=== PATIENT | male | born 1970 | race Caucasian/White ===

== ENCOUNTER 2017-01-27 09:03 | Emergency (ER) | payer OTHER ==
[2017-01-27 09:18] VITALS: BP 123/75
--- NOTE | 2017-01-27 09:44 | UC ---
Throat Pain/Nasal Uriel HPI - HPI Summary HPI Summary: Started with congestion, "sinus drainage," 2 [address] severe [address], body aches , chest congestion. Would really like an antibiotic -- "I just want to sleep. I can't miss work. I can't get my girlfriend sick because she just had surgery. I don't want to come back." - History of Current Complaint Chief Complaint: UCRespiratory Stated Complaint: SORE THROAT Time Seen by Provider: 01/27/17 09:32 Hx Obtained From: Patient Onset/Duration: Gradual Onset, Lasting Days Cough: Productive Related History: Seasonal Allergies, Smoking - Allergies/Home Medications Allergies/Adverse Reactions: Allergies Allergy/AdvReac Type Severity Reaction Status Date / Time No Known Allergies Allergy Verified 01/27/17 09:14 PMH/Surg Hx/FS Hx/Imm Hx Respiratory History: Asthma - Surgical History Surgical History: Yes Surgery Procedure, Year, and Place: HERNIA SURGERY - Family History Known Family History: Positive: None Negative: Hypertension, Diabetes - Social History Occupation: Employed Full-time Alcohol Use: Weekly Substance Use Type: None Smoking Status (MU): Heavy Every Day Tobacco Smoker Type: Cigarettes Amount Used/How Often: "not every day" Review of Systems Constitutional: Fatigue Skin: Negative Eyes: Negative ENT: Sore Throat, Nasal Discharge, Sinus Congestion, Sinus Pain/Tenderness Respiratory: Cough Cardiovascular: Negative Gastrointestinal: Negative Genitourinary: Negative Motor: Negative Neurovascular: Negative Musculoskeletal: Negative Neurological: Negative Psychological: Negative Is Patient Immunocompromised?: No All Other Systems Reviewed And Are Negative: Yes Physical Exam Triage Information Reviewed: Yes Appearance: Well-Nourished, Pain Distress - mild Vital Signs: Initial Vital Signs Temp 98.8 F 01/27/17 09:15 Pulse 95 01/27/17 09:15 Resp 16 01/27/17 09:15 BP 123/75 01/27/17 09:15 Pulse Ox 100 01/27/17 09:15 Vital Signs Reviewed: Yes Eye Exam: Normal Eyes: Positive: Conjunctiva Clear ENT: Positive: Hearing grossly normal, Pharynx normal, Nasal congestion, Nasal drainage, TMs normal. Negative: Pharyngeal erythema, TM bulging, TM dull, TM red, Hoarse voice Dental Exam: Normal Neck exam: Normal Neck: Positive: Supple, Nontender, No Lymphadenopathy Respiratory Exam: Normal Respiratory: Positive: Chest non-tender, Lungs clear, Normal breath sounds, No respiratory distress, No accessory muscle use Cardiovascular Exam: Normal Cardiovascular: Positive: RRR, No Murmur Musculoskeletal Exam: Normal Neurological Exam: Normal Neurological: Positive: Alert Psychological Exam: Normal Skin Exam: Normal Throat Pain/Nasal Course/Dx - Course Course Of Treatment: RST negative. Discussed the high likelihood of viral illness at length with pt, especially given his presentation and duration of symptoms. Discussed symptom relief. Pt continued to ask for antibiotic because he does not want to come back. I explained that an antibiotic while sick with a virus will not even prevent him from developing a secondary infection. - Differential Dx/Diagnosis Provider Diagnoses: URI, likely viral. viral pharyngitis Discharge - Discharge Plan Condition: Stable Disposition: HOME Prescriptions: Lidocaine 2% VISCOUS* 5 - 10 ml SWISH SPIT QID #1 btl Naproxen [Naproxen 500 mg] 500 mg PO Q8H PRN #20 tab PRN Reason: Pain Patient Education Materials: Pharyngitis (ED), Upper Respiratory Infection (ED) Forms: *Work Release Referrals: No Primary Care Phys,NOPCP [Primary Care Provider] - Additional Instructions: While you are quite ill, there is no indication that you have a bacterial infection at this time. In fact, it is because you have so many symptoms in different systems that a virus is almost certain. You need rest and time. If you develop new fever, trouble breathing, or worsening pain over time in the ears or the face, please call or return.
== END 2017-01-27 09:55 | disposition home or self-care (01) ==
LOC: UCEAST 09:03
DX: J06.9 Acute upper respiratory infection, unspecified (principal); J02.8 Acute pharyngitis due to other specified organisms; F17.210 Nicotine dependence, cigarettes, uncomplicated; J45.909 Unspecified asthma, uncomplicated
CPT/HCPCS: 87651; 99212; G0463

== ENCOUNTER 2017-01-27 16:11 | Inpatient (IN) | payer OTHER ==
[2017-01-27] MEDS ORDERED: diPHENhydraMINE IV* 50 MG/ML 1 ml VIAL (BENADRYL) IV ONE (16:22)
[2017-01-27] MEDS ORDERED: Ketorolac INJ* 30 MG/ML 1 ML VIAL IV ONE (16:22)
[2017-01-27] MEDS ORDERED: Clindamycin 300 MG IVPREMIX(* 300 MG/50 ML SDV IVPB ONE (16:25)
[2017-01-27] MEDS: NS 0.9% 1000 ML* 2,000 ML IV ONE (16:34)
[2017-01-27 17:01] LABS: Hematocrit 40 % (42-52); Hemoglobin 13.9 g/dl (14.0-18.0); Mean Corpuscular HGB Conc 35 g/dl (31-36); Mean Corpuscular Hemoglobin 33 pg (27-31); Mean Corpuscular Volume 94 fL (80-94); Mean Platelet Volume 9 um3 (7.4-10.4); Red Blood Count 4.29 10^6/ul (4.0-5.4); Red Cell Distribution Width 13 % (10.5-15)
[2017-01-27 17:12] LABS: Albumin 3.7 g/dL (3.2-5.2); C Reactive Protein 71.83 mg/L (< 5.00); Calcium 8.7 mg/dL (8.6-10.3); EGFR African American 149.4 (>60); EGFR Non-African American 116.2 (>60); Globulin 2.4 g/dL (2-4); Potassium 3.6 mmol/L (3.5-5.0); Total Bilirubin 0.8 mg/dL (0.2-1.0); Total Protein 6.1 g/dL (6.4-8.9)
[2017-01-27] MEDS ORDERED: Iohexol 300* (CONTRAST) 10 ML SDV IV ONE (17:29)
[2017-01-27] MEDS ORDERED: methylPREDNISolone 125 MG* 2 ML VIAL IV ONE (18:19)
[2017-01-27] MEDS ORDERED: Famotidine IV* 10 MG/ML 2 ML (20 mg) IV SLOW PU ONE (18:19)
--- NOTE | 2017-01-27 18:32 | RAD ---
INDICATION: Sore throat and difficulty swallowing. Fever. COMPARISON: No relevant prior exams available on the [facility] PACS for comparison. TECHNIQUE: Multidetector CT images skull base to lung apices with 50 mL Omnipaque 300 IV contrast. Multiplanar reformation. REPORT: Symmetric severe hypodense mucosal thickening of the oropharyngeal and hypopharyngeal mucosal space including thickening of the epiglottis. The inflammatory change extends as far caudally as the false vocal cords. The true vocal cords and subglottic airway are unremarkable. Significant resulting supraglottic airway narrowing. Inflammatory change extends to the bilateral carotid space and danger space anterior to the paravertebral space. No loculated abscess collection or abnormal soft tissue gas. Symmetric parapharyngeal fat. Unremarkable parotid and submandibular glands as well as the thyroid gland. Negative for lymphadenopathy based on short axis criteria. Patent bilateral internal jugular veins. Clear visualized lung apices. Negative for suspicious osseous lesions. Multilevel degenerative spondylosis and facet joint osteoarthritis. Moderate mucosal thickening at the RIGHT maxillary sinus. Mucous retention cyst or polyp at the floor of the LEFT maxillary sinus. Negative for paranasal sinus fluid levels. Clear mastoid air spaces. IMPRESSION: Severe extensive bilateral inflammation of the oropharyngeal and hypopharyngeal mucosal space with extension to involve the bilateral carotid space and danger space. No loculated abscess collection evident. Associated compromise of the supraglottic airway. Results discussed with Dr. Brock 01/27/2017 6:28 PM EST
[2017-01-27] MEDS ORDERED: cefTRIAXone(*) 1 GM in NS 0.9% 50 ML* 50 ML IVPB ONE (19:21)
[2017-01-27] MEDS ORDERED: Propofol* 10 MG/ML 20 ML BTL IV PUSH ONE (19:49)
[2017-01-27] MEDS ORDERED: Midazolam* 1 MG/ML 2 ML VIAL (2 MG) ONE ×2 (19:50→21:00)
[2017-01-27] MEDS ORDERED: Benzocaine/Butamben/Tetracain* SPRAY ONE (19:59)
[2017-01-27] MEDS ORDERED: cefTRIAXone VIAL(*) 1,000 MG VIAL IVPB ONE (20:00)
[2017-01-27] MEDS ORDERED: Phenylephrine 1% NASAL* 15 ML BOT ONE (20:06)
[2017-01-27] MEDS ORDERED: Lidocaine 2% JELLY* 20 ML (for OR use) ONE (20:08)
[2017-01-27] MEDS ORDERED: Albuterol 2.5 MG/3 ML NEB.SOL* (0.083%) INH PRN (20:13)
[2017-01-27] MEDS ORDERED: Acetaminophen TAB* 325 MG PO PRN (20:13)
[2017-01-27] MEDS ORDERED: Ondansetron INJ* 2 MG/ML VIAL IV PRN (20:26)
[2017-01-27] MEDS ORDERED: fentaNYL* 50 MCG/ML 2 ML VIAL (100 MCG VIAL) ONE ×2 (20:27→22:22)
[2017-01-27] MEDS ORDERED: Propofol* 100 ML ONE (21:06)
[2017-01-27] MEDS ORDERED: fentaNYL* 50 MCG/ML 2 ML VIAL (100 MCG VIAL) IV PRN (21:09)
[2017-01-27] MEDS ORDERED: Ondansetron INJ* 2 MG/ML VIAL ONE (21:15)
[2017-01-27] MEDS ORDERED: NS 0.9% 1000 ML* 1,000 ML IV SCH (21:15)
[2017-01-27 21:16] LABS: Prolactin 3.3 ng/mL (1.0-20.0)
[2017-01-27] MEDS: NS 0.9% 1000 ML* 1,000 ML IV SCH ×2 (21:16→22:56)
[2017-01-27] MEDS: Propofol* 100 ML IV SCH ×2 (21:16→23:56)
--- NOTE | 2017-01-27 21:27 | ED ---
Leatha Quevedo Gabriel scribed for John Paul Brock MD on 01/27/17 at 1624 . Allergic Reaction/Systemic - HPI Summary HPI Summary: This patient is a 46 year old M presenting to [facility] accompanied by with a chief complaint of possible allergic reaction since in the earlier this morning. The patient rates the pain 5/10 in severity. Patient reports SOB, swollen tongue, inability to swallow, difficulty breathing, sensation of throat is closing, and has a fever currently. Pt was seen at today and diagnosed with an URI. There he was given lidocaine gargle, naproxen, and he took prednisone that he had left over. He did not have a fever at today. - History of Current Complaint Chief Complaint: EDShortnessOfBreath Time Seen by Provider: 01/27/17 16:22 Hx Obtained From: Patient, Family/Director Of Corporate Strategy - Onset/Duration: Still Present Timing: Constant Severity Initially: Mild Severity Currently: Severe Pain Intensity: 5 Pain Scale Used: 0-10 Numeric Character: Swelling Associated Signs And Symptoms: Positive: Other: - reports SOB, swollen tongue, inability to swallow, difficulty breathing, sensation of throat is closing, and has a fever - Allergies/Home Medications Allergies/Adverse Reactions: Allergies Allergy/AdvReac Type Severity Reaction Status Date / Time No Known Allergies Allergy Verified 01/27/17 09:14 Home Medications: Home Medications Claritin-D Pill 1 tab PO DAILY 01/27/17 [History] PMH/Surg Hx/FS Hx/Imm Hx Previously Healthy: No Endocrine/Hematology History: Denies: Hx Diabetes, Hx Thyroid Disease Cardiovascular History: Denies: Hx Hypertension Respiratory History: Reports: Hx Asthma - A CHILD Denies: Hx Chronic Obstructive Pulmonary Disease (COPD) GI History: Denies: Hx Ulcer - Surgical History Surgery Procedure, Year, and Place: HERNIA SURGERY Infectious Disease History: No Infectious Disease History: Denies: Hx Clostridium Difficile, Hx Hepatitis, Hx Human Immunodeficiency Virus (HIV), Hx Shingles, Hx Tuberculosis, Hx Known/Suspected VRE, Hx Known/ Suspected VRSA, History Other Infectious Disease, Traveled Outside the [place] in Last 30 Days - Family History Known Family History: Negative: Hypertension, Diabetes - Social History Lives: With Family Alcohol Use: Weekly Hx Substance Use: No Substance Use Type: Reports: None Hx Tobacco Use: Yes Smoking Status (MU): Heavy Every Day Tobacco Smoker Type: Cigarettes Amount Used/How Often: "not every day" Review of Systems Positive: Fever Positive: Other - swollen tongue, inability to swallow Positive: Shortness Of Breath, Other - difficulty breathing, sensation of throat is closing All Other Systems Reviewed And Are Negative: Yes Physical Exam - Summary Physical Exam Summary: Appearance: The patient is well-nourished in no acute distress and in no acute pain. Skin: The skin is warm and dry and skin color reflects adequate perfusion. HEENT: The head is normocephalic and atraumatic. The pupils are equal and reactive. The conjunctivae are clear and without drainage. Nares are patent and without drainage. Mouth reveals moist mucous membranes and the throat is without erythema and exudate. The external ears are intact. The ear canals are patent and without drainage. The tympanic membranes are intact. Pateint has a hot potato voice. No stridor. There is cervical and submandibular lymphadenopathy. Neck: the neck is supple with full range of motion and non-tender. There are no carotid bruits. There is no neck vein distension. Respiratory: Chest is non-tender. Lungs are clear to auscultation and breath sounds are symmetrical and equal. Cardiovascular: Heart is regular rate and rhythm. There is no murmur or rub auscultated. There is no peripheral edema and pulses are symmetrical and equal. Abdomen: The abdomen is soft and non-tender. There are normal bowel sounds heard in all four quadrants and there is no organomegaly palpated. Musculoskeletal: There is no back tenderness noted. Extremities are non-tender with full range of motion. There is good capillary refill. There is no peripheral edema or calf tenderness elicited. Neurological: Patient is alert and oriented to person, place and time. The patient has symmetrical motor strength in all four extremities. Cranial nerves are grossly intact. Deep tendon reflexes are symmetrical and equal in all four extremities. Psychiatric: The patient has an appropriate affect and does not exhibit any anxiety or depression. Triage Information Reviewed: Yes Vital Signs On Initial Exam: Initial Vitals Temp Pulse Resp BP Pulse Ox 102.4 F 132 28 125/96 98 01/27/17 16:16 12 16:16 01/27/17 16:16 01/27/17 16:16 01/27/17 16:16 Vital Signs Reviewed: Yes Diagnostics - Vital Signs Vital Signs Temp Pulse Resp BP Pulse Ox 01/27/17 16:16 102.4 F 132 28 125/96 98 - Laboratory Lab Results: Lab Results 01/27/17 01/27/17 Range/Units 16:45 16:45 WBC 16.0 H (3.5-10.8) 10^3/ul RBC 4.29 (4.0-5.4) 10^6/ul Hgb 13.9 L (14.0-18.0) g/dl Hct 40 L (42-52) % MCV 94 (80-94) fL MCH 33 H (27-31) pg MCHC 35 (31-36) g/dl RDW 13 (10.5-15) % Plt Count 135 L (150-450) 10^3/ul MPV 9 (7.4-10.4) um3 Neut % (Auto) 95.6 H (38-83) % Lymph % (Auto) 1.6 L (25-47) % Dixie % (Auto) 2.6 (1-9) % Eos % (Auto) 0 (0-6) % Baso % (Auto) 0.2 (0-2) % Absolute Neuts (auto) 15.3 H (1.5-7.7) 10^3/ul Absolute Lymphs (auto) 0.3 L (1.0-4.8) 10^3/ul Absolute Monos (auto) 0.4 (0-0.8) 10^3/ul Absolute Eos (auto) 0 (0-0.6) 10^3/ul Absolute Basos (auto) 0 (0-0.2) 10^3/ul Absolute Nucleated RBC 0 10^3/ul Nucleated RBC % 0 Sodium 133 (133-145) mmol/L Potassium 3.6 (3.5-5.0) mmol/L Chloride 104 (101-111) mmol/L Carbon Dioxide 22 (22-32) mmol/L Anion Gap 7 (2-11) mmol/L BUN 8 (6-24) mg/dL Creatinine 0.73 (0.67-1.17) mg/dL Est GFR ( Amer) 149.4 (>60) Est GFR (Non-Af Amer) 116.2 (>60) BUN/Creatinine Ratio 11.0 (8-20) Glucose 130 H (70-100) mg/dL Calcium 8.7 (8.6-10.3) mg/dL Total Bilirubin 0.80 (0.2-1.0) mg/dL AST 15 (13-39) U/L ALT 11 (7-52) U/L Alkaline Phosphatase 46 (34-104) U/L C-Reactive Protein 71.83 H (< 5.00) mg/L Total Protein 6.1 L (6.4-8.9) g/dL Albumin 3.7 (3.2-5.2) g/dL Globulin 2.4 (2-4) g/dL Albumin/Globulin Ratio 1.5 (1-3) Prolactin 3.3 (1.0-20.0) ng/mL Result Diagrams: 01/27/17 16:45 01/27/17 16:45 Lab Statement: Any lab studies that have been ordered have been reviewed, and results considered in the medical decision making process. - CT CT Neck CT Interpretation Completed By: Radiologist - Severe extensive bilateral inflammation of the oropharyngeal and hypopharyngeal mucosal space with extension to involve the bilateral carotid space and danger space. No loculated abscess collection evident. Associated compromise of the supraglottic airway. Results discussed with Dr. Brock 01/27/2017 6:28 PM EST ED physician has reviewed this radiology report Re-Evaluation - Re-Evaluation First Eval Re-Evaluation Time: 17:11 Change: Unchanged Comment: Patient has not changed much but he is now diaphoretic. Also his fever is decreasing. Allergic Reaction Course/Dx - Course Course Of Treatment: Mr. Carbajal had the insidious and inexorable onset of sore throat and difficulty swallowing over the last 18 or so hours. On arrival he was anxious and spitting saliva but had no sign of stridor and a normal pulse ox. He gradually developed some tachycardia while here. Labs were drawn and he was given benadryl, clindamycin, solumedrol and rocephin as well as IV NS. Dr. Silveira and Dr. Melgar came in and took himn to the OR to get a definitive airway and he was admitted to the ICU. - Diagnoses Provider Diagnoses: Epiglottitis, Cellulitis of parapharyngeal space - Critical Care Time Critical Care Time: 30-74 min Discharge - Discharge Plan Condition: Stable Disposition: ADMITTED TO [facility] Referrals: No Primary Care Phys,NOPCP [Primary Care Provider] - Consult Consult: 18:32 Discussed patient care with the current PA working with the hospitalist. It was expressed to him the possible need for intubation and transfer. 18:36 Discussed patient care with Transfer center at [facility]. Informed them of the patients condition and possible need for higher care. 18:40 Discussed patient care with Dr. Perez, anesthesiologist. He was in the OR and recommended calling Dr. Silveira for a consult. 18:51 Discussed patient care with Dr. Silveira and he recommended calling Dr. Melgar. 19:07 Discussed patient care with Dr. Silveira and he stated that he talked to Dr. Melgar, and they both agreed to come see the patient. 19:18 Discussed patient care with Dr. Melgar and he has agreed to come see the patient. The documentation as recorded by the Leatha zeng Gabriel accurately reflects the service I personally performed and the decisions made by me, John Paul Brock MD.
[2017-01-27] MEDS: Docusate CAP* 100 MG PO SCH (22:24)
[2017-01-27] MEDS ORDERED: NS 0.9% 500 ML* 500 ML IV ONE (23:00)
[2017-01-27] MEDS ORDERED: Dexmedetomidine 4 MCG/ML 100 ML DRIP IVPB SCH ×2 (23:00)
[2017-01-27] MEDS: Clindamycin 600 MG IVPREMIX(* 600 MG/50 ML SDV IV SCH (23:57)
[2017-01-28] MEDS ORDERED: NS 0.9% 250 ML* 246 ML with Norepinephrine VIAL* 4 MG IV SCH ×2 (02:00)
--- NOTE | 2017-01-28 03:01 | HP ---
H&P (Free Text) History and Physical: PCP: none Date/Time: 01/27/20171944 CC: sore throat, difficulty breathing HPI: Mr Carbajal is a 46YO male who awoke the night of 01/26-01/27 with a sore throat. He presented [facility] and was prescribed a mouth wash and NSAID. Early in the afternoon he began to have SOB, difficulty breathing, and an inability to manage oral secretions prompting presentation for evaluation. He denies F/C, N/V, chest pain, cough, congestion, or other issues. He is unable to answer questions as with nearly every inspiration his breath suddenly catches and he is unable to breath. CT neck WO has confirmed epiglotitis w/ impending airway obstruction. Drs Raoul, Anesthesiology & Talia, ENT are present. Mr Carbajal is being emergently taken to the OR for placement of ET tube vs NT tube vs tacheostomy. He has received IV methylprednisolone, ceftriaxone, & clindamycin. Patient revisited in ICU 5 immediately post-op, ET was unable to be placed. However, NT intubation was successfully performed. Airway is secured. Place OG. Patient's is at the bedside and apprised of his situation with is currently stable. Will titrate propofol to RASS -2. Will consider low dose peripheral norepinephrine GTT if needed to maintain adequate propofol sedation & MAP. Mr Carbajal is currently tolerating the NT intubation well, but if ventilatory issues arise, may need to consider a paralytic. PMedHx allergic rhinitis Ambulatory Orders Claritin-D Pill 1 tab PO DAILY 01/27/17 Allergies No Known Allergies Allergy (Verified 01/27/17 09:14) PSurgHx denies SocHx: 1PPD cigarettes, mild alcohol, no recreational drugs; lives with his ; full code status FamHx: negative for early onset CAD/CVA ROS: as above, otherwise reviewed and all were negative vitals: Vital Signs Temp 36.7 C 01/27/17 23:56 Pulse 72 01/28/17 02:01 Resp 20 01/28/17 02:00 BP 124/83 01/28/17 02:00 Pulse Ox 100 01/28/17 02:01 Intake & Output 01/27/17 01/27/17 01/28/17 11:59 23:59 11:59 Intake Total 2049 Balance 2049 Weight 86.183 kg Intake: IV Fluids 2049 Constitutional: normally developed, well-nourished white male obviously uncomfortable with a tenuous airway HEENM: atraumatic; sclera/conjunctiva: anicteric/clear; blephara: normal; hearing: clinically intact; oropharynx: posterior oropharyngeal erythema Neck: soft tissue: tender B carotid & submental spaces; thyroid: diffusely tender 2nd surrounding inflammation Pulmonary: marked stridor, clear to ausculation B, fair to poor aeration, no accessory muscle use, unable to manage oral secretions, clearly pending obstruction CV: RR/RR, normal S1S2, no carotid bruit, no jugular venous distention, 2+ B DP/ PT, no edema Abdominal: soft, non-distended, non-tender, no rebound/guarding/rigidity, normoactive bowel sounds, no hepatosplenomegaly or masses, no costovertebral angle tenderness Musculoskeletal: general: grossly intact, no palpable tenderness; gait: unable to ambulate safely Integumental: normal appearance and texture Psychiatric orientation: AA&O to PPS affect: anxious mood: cooperative eye contact: good content: patient requested not to attempt to speak, rather concentrate on remaining calm insight: good Testing: Lab Results 01/27/17 01/27/17 01/27/17 Range/Units 16:45 16:45 16:45 WBC 16.0 H (3.5-10.8) 10^3/ul RBC 4.29 (4.0-5.4) 10^6/ul Hgb 13.9 L (14.0-18.0) g/dl Hct 40 L (42-52) % MCV 94 (80-94) fL MCH 33 H (27-31) pg MCHC 35 (31-36) g/dl RDW 13 (10.5-15) % Plt Count 135 L (150-450) 10^3/ul MPV 9 (7.4-10.4) um3 Neut % (Auto) 95.6 H (38-83) % Lymph % (Auto) 1.6 L (25-47) % Dickens % (Auto) 2.6 (1-9) % Eos % (Auto) 0 (0-6) % Baso % (Auto) 0.2 (0-2) % Absolute Neuts (auto) 15.3 H (1.5-7.7) 10^3/ul Absolute Lymphs (auto) 0.3 L (1.0-4.8) 10^3/ul Absolute Monos (auto) 0.4 (0-0.8) 10^3/ul Absolute Eos (auto) 0 (0-0.6) 10^3/ul Absolute Basos (auto) 0 (0-0.2) 10^3/ul Absolute Nucleated RBC 0 10^3/ul Nucleated RBC % 0 Sodium 133 (133-145) mmol/L Potassium 3.6 (3.5-5.0) mmol/L Chloride 104 (101-111) mmol/L Carbon Dioxide 22 (22-32) mmol/L Anion Gap 7 (2-11) mmol/L BUN 8 (6-24) mg/dL Creatinine 0.73 (0.67-1.17) mg/dL Est GFR ( Amer) 149.4 (>60) Est GFR (Non-Af Amer) 116.2 (>60) BUN/Creatinine Ratio 11.0 (8-20) Glucose 130 H (70-100) mg/dL POC Glucose (mg/dL) (70-100) mg/dL Calcium 8.7 (8.6-10.3) mg/dL Total Bilirubin 0.80 (0.2-1.0) mg/dL AST 15 (13-39) U/L ALT 11 (7-52) U/L Alkaline Phosphatase 46 (34-104) U/L C-Reactive Protein 71.83 H (< 5.00) mg/L Total Protein 6.1 L (6.4-8.9) g/dL Albumin 3.7 (3.2-5.2) g/dL Globulin 2.4 (2-4) g/dL Albumin/Globulin Ratio 1.5 (1-3) Procalcitonin < 0.1 (<0.6) ng/mL Prolactin 3.3 (1.0-20.0) ng/mL 01/27/17 Range/Units 22:39 WBC (3.5-10.8) 10^3/ul RBC (4.0-5.4) 10^6/ul Hgb (14.0-18.0) g/dl Hct (42-52) % MCV (80-94) fL MCH (27-31) pg MCHC (31-36) g/dl RDW (10.5-15) % Plt Count (150-450) 10^3/ul MPV (7.4-10.4) um3 Neut % (Auto) (38-83) % Lymph % (Auto) (25-47) % Dickens % (Auto) (1-9) % Eos % (Auto) (0-6) % Baso % (Auto) (0-2) % Absolute Neuts (auto) (1.5-7.7) 10^3/ul Absolute Lymphs (auto) (1.0-4.8) 10^3/ul Absolute Monos (auto) (0-0.8) 10^3/ul Absolute Eos (auto) (0-0.6) 10^3/ul Absolute Basos (auto) (0-0.2) 10^3/ul Absolute Nucleated RBC 10^3/ul Nucleated RBC % Sodium (133-145) mmol/L Potassium (3.5-5.0) mmol/L Chloride (101-111) mmol/L Carbon Dioxide (22-32) mmol/L Anion Gap (2-11) mmol/L BUN (6-24) mg/dL Creatinine (0.67-1.17) mg/dL Est GFR ( Amer) (>60) Est GFR (Non-Af Amer) (>60) BUN/Creatinine Ratio (8-20) Glucose (70-100) mg/dL POC Glucose (mg/dL) 152 H (70-100) mg/dL Calcium (8.6-10.3) mg/dL Total Bilirubin (0.2-1.0) mg/dL AST (13-39) U/L ALT (7-52) U/L Alkaline Phosphatase (34-104) U/L C-Reactive Protein (< 5.00) mg/L Total Protein (6.4-8.9) g/dL Albumin (3.2-5.2) g/dL Globulin (2-4) g/dL Albumin/Globulin Ratio (1-3) Procalcitonin (<0.6) ng/mL Prolactin (1.0-20.0) ng/mL ECG, personally reviewed: CT neck W, personally reviewed: IMPRESSION: Severe extensive bilateral inflammation of the oropharyngeal and hypopharyngeal mucosal space with extension to involve the bilateral carotid space and danger space. No loculated abscess collection evident. Associated compromise of the supraglottic airway. Results discussed with Dr. Brock 01/27/2017 6:28 PM EST Impression: 46M presenting with inpending airway obstruction 2nd epiglottitis DIAGNOSIS & PLAN Primary epiglottitis with impending airway obstruction : Dr Silveira, anesthesiology evaluated in ED : Dr Melgar, ENT evaluated in ED; will take to OR to secure airway : maintain adequate sedation, comfort, & ventilation via propofol +/- consideration for dexmedetomidine +/- paralytic PRN : Augusto Villegas MD critical care apprised of situation : supportive care Admission Rational: inpatient for critical airway obstruction requiring emergent OR intubation DVTp: SCDs & heparin SQ Code Status: full HCP:
[2017-01-28] MEDS: methylPREDNISolone SOD 40 MG* 1 ML VIAL IV SCH ×3 (03:29→17:38)
[2017-01-28] MEDS: Propofol* 100 ML IV SCH ×6 (03:52→21:50)
--- NOTE | 2017-01-28 05:32 | OP ---
DATE OF OPERATION: 01/27/17 - ROOM #ICU-05 DATE OF : 72 SURGEON: Bryn Melgar MD ANESTHESIOLOGIST: Dr. Silveira ANESTHESIA: MAC PRE-OP DIAGNOSIS: Epiglottis. POST-OP DIAGNOSIS: Epiglottis. OPERATIVE PROCEDURE: Fiberoptic intubation. BRIEF HISTORY: This is a 46-year-old gentleman with acute sore throat with significant odynophagia and some stridor. Flexible endoscopy carried out in the ER showed extensive epiglottitis. DESCRIPTION OF PROCEDURE: The patient was taken to the operating room with a double setup, attempt for fiberoptic if not a tracheostomy. He was consented for both. At the bedside, through the left naris, the flexible endoscope was used, entered through the significantly edematous epiglottis. Subsequently, the fiberoptic scope was passed to confirming the mainstem bronchus. Subsequently # 7 tube was inserted through the nose. The patient was then given an anesthetic and the flexible scope was removed. Tube was secured, transferred care to the ICU with ventilation. He had good breathing, he had no distress. No blood loss. Instrument and sponge counts are otherwise correct. [id number]/CPS #: [id number] MTDD
[2017-01-28 05:41] LABS: Hematocrit 41 % (42-52); Hemoglobin 14.1 g/dl (14.0-18.0); Mean Corpuscular HGB Conc 34 g/dl (31-36); Mean Corpuscular Hemoglobin 33 pg (27-31); Mean Corpuscular Volume 96 fL (80-94); Mean Platelet Volume 10 um3 (7.4-10.4); Red Blood Count 4.33 10^6/ul (4.0-5.4); Red Cell Distribution Width 13 % (10.5-15); White Blood Count 34.7 10^3/ul (3.5-10.8)
[2017-01-28 05:47] LABS: Add Diff/Slide Review? Slide Review Added; Comments Flag Yes
[2017-01-28 05:52] LABS: EGFR African American 132.5 (>60)
[2017-01-28 06:29] LABS: Immature Granulocytes 18 % (0-9); Neutrophil % 76 % (38-83); RBC Morphology Normal (Normal)
[2017-01-28] MEDS: Heparin VIAL(*) 5000 UNITS/ML VIAL (FIVE THOUSAND) SUBCUT SCH ×3 (06:39→21:18)
[2017-01-28] MEDS: Famotidine IV* 10 MG/ML 2 ML (20 mg) IV SLOW PU SCH ×2 (08:00→21:18)
[2017-01-28] MEDS: Clindamycin 600 MG IVPREMIX(* 600 MG/50 ML SDV IV SCH ×2 (08:00→17:03)
[2017-01-28] MEDS: Docusate CAP* 100 MG PO SCH ×2 (08:26→21:47)
[2017-01-28] MEDS: Chlorhexidine MOUTHWASH 0.12%* 15 ML UDC TOPICAL SCH ×4 (10:32→23:17)
[2017-01-28] MEDS: fentaNYL PCA* 20 ML PCA SCH (10:54)
[2017-01-28] MEDS: NS 0.9% 1000 ML* 1,000 ML IV SCH (11:09)
--- NOTE | 2017-01-28 12:15 | PN ---
Progress Note - Progress Note Date of Service: 01/28/17 Note: CRITICAL CARE MEDICINE Date: 01/28/17 Time: 1100 SUBJECTIVE: Patient seen and examined. PHYSICAL EXAM: Vital Signs: Reviewed. stable coming off levo. Neurologic: sedated but grimace. HEENT: balding, pupils equal. Sclera anicteric. left nares intubated. Cardiovascular: S1 S2 Respiratory: clear, + cuff leak Abdomen: Soft, nt. No r/g/r. Extremities: Warm. Access: piv LABS: Reviewed. IMAGING: Reviewed. MEDICATIONS: Reviewed. ASSESSMENT: 46 M Epiglottitis Acute resp failure sec to airway obstruction Tobacco use disoder PLAN: stable Keep sedated with Rass <-3 Propofol. add fent digital media intern gtt. on steroids, C3, clinda. ENT following As d/w pts , need time. SUP Can hold off for now on ogt and tf as he has reserve. Add nicotine td Supportive and preventative care as ordered. SUP: h2 VTE prophylaxis: heparin Esposito catheter given critical illness, monitoring needs for accurate assessment of JUDITH and KDIGO criteria for critically ill patients and to avoid potential harms of urinary retention, skin breakdown/ulcers. Restraints: Reviewed and required. Disposition: ICU Code Status: Full Critical Care Time: 35min Rajat Villegas DO
[2017-01-28] MEDS: Nicotine PATCH 14 MG/24 HR* PATCH TRANSDERM SCH (13:20)
[2017-01-28] MEDS: NS 0.9% 250 ML* 246 ML with Norepinephrine VIAL* 4 MG IV SCH ×2 (13:30)
[2017-01-28] MEDS: cefTRIAXone VIAL(*) 1,000 MG in D5W 50 ML BAG* 50 ML IVPB SCH (18:48)
[2017-01-28] MEDS: Nicotine Patch Removal NOTE PATCH OFF SCH (21:51)
[2017-01-29] MEDS: Propofol* 100 ML IV SCH ×8 (01:02→21:27)
[2017-01-29] MEDS: Clindamycin 600 MG IVPREMIX(* 600 MG/50 ML SDV IV SCH ×3 (01:08→17:25)
[2017-01-29] MEDS: methylPREDNISolone SOD 40 MG* 1 ML VIAL IV SCH ×3 (02:19→17:25)
[2017-01-29] MEDS: NS 0.9% 1000 ML* 1,000 ML IV SCH ×2 (03:06→11:23)
[2017-01-29] MEDS: Chlorhexidine MOUTHWASH 0.12%* 15 ML UDC TOPICAL SCH ×6 (03:08→23:41)
[2017-01-29] MEDS: fentaNYL PCA* 20 ML PCA SCH ×2 (03:21→21:01)
[2017-01-29] MEDS: NS 0.9% 250 ML* 246 ML with Norepinephrine VIAL* 4 MG IV SCH ×4 (04:05→21:03)
[2017-01-29] MEDS: Heparin VIAL(*) 5000 UNITS/ML VIAL (FIVE THOUSAND) SUBCUT SCH ×3 (06:11→21:11)
[2017-01-29 06:29] LABS: Hematocrit 33 % (42-52); Hemoglobin 11.8 g/dl (14.0-18.0); Mean Corpuscular HGB Conc 35 g/dl (31-36); Mean Corpuscular Hemoglobin 34 pg (27-31); Mean Corpuscular Volume 98 fL (80-94); Mean Platelet Volume 11 um3 (7.4-10.4); Red Blood Count 3.41 10^6/ul (4.0-5.4); Red Cell Distribution Width 14 % (10.5-15); White Blood Count 18.6 10^3/ul (3.5-10.8)
[2017-01-29 07:46] LABS: BUN/Creatinine Ratio 26.2 (8-20); Blood Urea Nitrogen 22 mg/dL (6-24); CO2 Carbon Dioxide 21 mmol/L (22-32); Calcium 8.9 mg/dL (8.6-10.3); Chloride 111 mmol/L (101-111); EGFR African American 127.1 (>60); EGFR Non-African American 98.8 (>60); Glucose 159 mg/dL (70-100); Sodium 140 mmol/L (133-145)
[2017-01-29] MEDS: Famotidine IV* 10 MG/ML 2 ML (20 mg) IV SLOW PU SCH ×2 (09:04→21:11)
[2017-01-29 09:11] LABS: Anion Gap 8 mmol/L (2-11)
--- NOTE | 2017-01-29 11:08 | PN ---
Progress Note - Progress Note Date of Service: 01/29/17 Note: CRITICAL CARE MEDICINE Date: 01/29/17 Time: 1020 SUBJECTIVE: Patient seen and examined. PHYSICAL EXAM: Vital Signs: Reviewed. stable. prop, fent Neurologic: sedated but grimace. HEENT: pupils equal. Sclera anicteric. left nares intubated. Cardiovascular: S1 S2 Respiratory: clear, + cuff leak Abdomen: Soft, nt. No r/g/r. Extremities: Warm. Access: picc LABS: Reviewed. IMAGING: Reviewed. MEDICATIONS: Reviewed. ASSESSMENT: 46 M Epiglottitis Acute resp failure sec to airway obstruction Tobacco use disoder PLAN: stable Keep sedated with Rass <-3 again; more comfortable apprearing Propofol.fent audit practice intern gtt. on steroids, C3, clinda continued will discuss timing for liberation, perhaps come tomorrow with ENT d/w pts Holding off on ogt/tf today SUP nicotine td Supportive and preventative care as ordered. SUP: h2 VTE prophylaxis: heparin Esposito catheter given critical illness, monitoring needs for accurate assessment of JUDITH and KDIGO criteria for critically ill patients and to avoid potential harms of urinary retention, skin breakdown/ulcers. Restraints: Reviewed and required. Disposition: ICU Code Status: Full Critical Care Time: 35min Rajat Villegas DO
[2017-01-29] MEDS: Docusate CAP* 100 MG PO SCH ×2 (11:39→20:20)
[2017-01-29] MEDS: Nicotine PATCH 14 MG/24 HR* PATCH TRANSDERM SCH (11:45)
[2017-01-29] MEDS: cefTRIAXone VIAL(*) 1,000 MG in D5W 50 ML BAG* 50 ML IVPB SCH (18:29)
[2017-01-29] MEDS: Nicotine Patch Removal NOTE PATCH OFF SCH (21:03)
[2017-01-30] MEDS: Propofol* 100 ML IV SCH ×5 (00:37→10:14)
[2017-01-30] MEDS: Clindamycin 600 MG IVPREMIX(* 600 MG/50 ML SDV IV SCH ×3 (00:42→18:05)
[2017-01-30] MEDS: methylPREDNISolone SOD 40 MG* 1 ML VIAL IV SCH ×3 (02:02→18:20)
[2017-01-30] MEDS: NS 0.9% 1000 ML* 1,000 ML IV SCH (02:27)
[2017-01-30] MEDS: Chlorhexidine MOUTHWASH 0.12%* 15 ML UDC TOPICAL SCH ×2 (03:36→05:40)
[2017-01-30] MEDS: Heparin VIAL(*) 5000 UNITS/ML VIAL (FIVE THOUSAND) SUBCUT SCH ×3 (05:40→21:13)
[2017-01-30 06:41] LABS: Hematocrit 35 % (42-52); Hemoglobin 11.8 g/dl (14.0-18.0); Mean Corpuscular HGB Conc 34 g/dl (31-36); Mean Corpuscular Hemoglobin 33 pg (27-31); Mean Corpuscular Volume 97 fL (80-94); Mean Platelet Volume 11 um3 (7.4-10.4); Red Blood Count 3.62 10^6/ul (4.0-5.4); Red Cell Distribution Width 14 % (10.5-15)
[2017-01-30] MEDS: Nicotine PATCH 14 MG/24 HR* PATCH TRANSDERM SCH (08:18)
[2017-01-30] MEDS: Famotidine IV* 10 MG/ML 2 ML (20 mg) IV SLOW PU SCH (08:21)
[2017-01-30] MEDS: Docusate CAP* 100 MG PO SCH ×2 (09:30→21:13)
--- NOTE | 2017-01-30 09:57 | PN ---
Progress Note - Progress Note Date of Service: 01/30/17 Note: CRITICAL CARE MEDICINE Date: 01/30/17 Time: 920 SUBJECTIVE: Patient seen and examined. PHYSICAL EXAM: Vital Signs: Reviewed. stable. prop up, on fent Neurologic: sedated. awakens for nursing on less prop. HEENT: pupils equal. Sclera anicteric. left nares intubated. dry blood Cardiovascular: S1 S2 Respiratory: clear, + cuff leak Abdomen: Soft, nt. No r/g/r. Extremities: Warm. Access: picc LABS: Reviewed. IMAGING: Reviewed. MEDICATIONS: Reviewed. ASSESSMENT: 46 M Epiglottitis Acute resp failure sec to airway obstruction Tobacco use disoder PLAN: stable Keep sedated with Rass <-3 this am and then will need to dec prop to off when ready to liberate. Hopefully fent can keep him as comfy as possible thru liberation phase. first hour being the most important for airway. airway supplies to bedside. Will have ent on the standby and perhaps scope during liberation or a bit after. steroids continued towards po soon; C3, clinda continued d/w pts SUP nicotine td Supportive and preventative care as ordered. SUP: h2 VTE prophylaxis: heparin Esposito catheter given critical illness, monitoring needs for accurate assessment of JUDITH and KDIGO criteria for critically ill patients and to avoid potential harms of urinary retention, skin breakdown/ulcers. Restraints: Reviewed and required. Disposition: ICU Code Status: Full Critical Care Time: 35min Rajat Villegas DO
[2017-01-30] MEDS: NS 0.9% 250 ML* 246 ML with Norepinephrine VIAL* 4 MG IV SCH ×2 (12:57)
[2017-01-30] MEDS ORDERED: cefTRIAXone* 1 GM in NS 0.9% 50 ML BAG IVPB SCH (19:00)
[2017-01-30] MEDS: Nicotine Patch Removal NOTE PATCH OFF SCH (19:33)
[2017-01-30] MEDS ORDERED: traZODone TAB* 100 MG PO PRN (22:28)
[2017-01-31] MEDS: Clindamycin 600 MG IVPREMIX(* 600 MG/50 ML SDV IV SCH (00:51)
[2017-01-31 05:40] LABS: Hematocrit 33 % (42-52); Hemoglobin 11.1 g/dl (14.0-18.0); Mean Corpuscular HGB Conc 34 g/dl (31-36); Mean Corpuscular Hemoglobin 33 pg (27-31); Mean Corpuscular Volume 95 fL (80-94); Mean Platelet Volume 10 um3 (7.4-10.4); Red Blood Count 3.42 10^6/ul (4.0-5.4); Red Cell Distribution Width 13 % (10.5-15); White Blood Count 10.7 10^3/ul (3.5-10.8)
[2017-01-31 05:57] LABS: BUN/Creatinine Ratio 26.3 (8-20); Calcium 8.4 mg/dL (8.6-10.3); EGFR African American 142.6 (>60); EGFR Non-African American 110.9 (>60); Potassium 3.3 mmol/L (3.5-5.0)
[2017-01-31] MEDS: Nicotine PATCH 14 MG/24 HR* PATCH TRANSDERM SCH (08:00)
[2017-01-31] MEDS: Heparin VIAL(*) 5000 UNITS/ML VIAL (FIVE THOUSAND) SUBCUT SCH (08:14)
[2017-01-31] MEDS ORDERED: Potassium Chlor TAB* 20 MEQ TAB.ER PO ONE (09:00)
[2017-01-31] MEDS ORDERED: Clindamycin CAP* 150 MG PO SCH (09:00)
[2017-01-31] MEDS ORDERED: predniSONE TAB* 20 MG PO SCH (09:00)
[2017-01-31 11:14] VITALS: BP 122/69
--- NOTE | 2017-01-31 11:16 | PN ---
Progress Note - Progress Note Date of Service: 01/31/17 Note: CRITICAL CARE MEDICINE Date: 01/31/17 Time: 950 SUBJECTIVE: Patient seen and examined. PHYSICAL EXAM: Vital Signs: Reviewed. stable. Neurologic: normal HEENT: pupils equal. Sclera anicteric. Cardiovascular: S1 S2 Respiratory: clear Abdomen: Soft, nt. Extremities: Warm. Access: picc LABS: Reviewed. IMAGING: Reviewed. MEDICATIONS: Reviewed. ASSESSMENT: 46 M Epiglottitis Acute resp failure sec to airway obstruction - resolved. Tobacco use disoder Mild delirium - resolved. Deconditioning PLAN: stable doing well. eval with pt to ensure ok for home today. clinda po stated and complete 7 days for epiglottis. 2 more days prednisone. Explained importance of establishing primary doc and f/u in 7-10 days. D/w pt and and they expressed understanding. Supportive and preventative care as ordered. Disposition: to home if ok by PT on his feet Code Status: Full Critical Care Time: 25min FJohnson Villegas DO
--- NOTE | 2017-01-31 11:34 | PN ---
Correspondence/Letterhead Correspondence: 01/31/17 JOHN PAUL VERGARA Work Note To whom it may concern, John Paul Vergara has been under my care from January 27 to the 2016 in the intensive care unit at [facility]. Patients critical condition has improved and he can resume normal work starting February 04, 2017. Please allow this to document to serve as validation. Sincerely, Rajat Villegas DO Industrial Psychology Teacher Critical Care Medicine [address] [place] [address] Pedrito Villegas DO 01/31/[id number]
--- NOTE | 2017-01-31 11:43 | DS ---
CRITICAL CARE MEDICINE DISCHARGE SUMMARY ADMISSION DATE: 01/27/2017 ICU ADMISSION DATE: 01/31/2017 ICU DISCHARGE DATE: 01/31/2017 PRIMARY CARE PROVIDER: None. REFERRING PHYSICIAN: Dr. Brock. ENT PHYSICIAN: Dr. Melgar. DIAGNOSIS: 1. Acute epiglottitis. 2. Acute hypoxic respiratory failure. 3. Tobacco use disorder. MEDICATIONS AT DISCHARGE: (Prescriptions electronically sent to [facility]) 1. Clindamycin 300mg by mouth three times a day for 7 days. 2. Prednisone 20mg by mouth daily for 2 days. 3. Claritin as previously taking. ALLERGIES: None. HOSPITAL COURSE: 46 year old male originally presenting to urgent care with sore throat, quickly worsening at home, in ED with obstructing airway secondary to epiglottitis taken emergently to operating room with successful nasal tracheal intubation via left nares with 7.0 tube. Admitted to ICU and maintained with sedation, steroids and IV antibiotics (Ceftriaxone and clindamycin). Improved well and liberated on day 3 and weaned off oxygen. Re- scope via ENT with no edema and looking healthy. Patient's care advanced, evaluated by physcial therapy and patient desires to go home. Advocacy to cease smoking habits; establish a primary care provider in 7-10 days for follow up. Call if condition worsens or complications present. DISPOSITION: Home. DIET: Regular. ACTIVITY: At liberty. CODE STATUS: FULL. FOLLOW UP: Seek PCP for follow up 7-10 days. Rajat Villegas DO
== END 2017-01-31 13:14 | disposition home or self-care (01) | DRG 152 ==
LOC: ED 16:11 → ICU 19:45 → ED 20:00 → ICU 01-30 12:15
PROVIDERS: ADMIT Hospitalist; ATTEND Internal Medicine Critical Care Medicine
PROC: 0BH18EZ Insertion of Endotracheal Airway into Trachea, Via Natural or Artificial Opening Endoscopic (ICD-10-PCS; 2017-01-27)
PROC: 5A1945Z Respiratory Ventilation, 24-96 Consecutive Hours (ICD-10-PCS; principal; 2017-01-27 20:20)
DX: J05.11 Acute epiglottitis with obstruction (principal); J96.00 Acute respiratory failure, unspecified whether with hypoxia or hypercapnia; F17.210 Nicotine dependence, cigarettes, uncomplicated; J45.909 Unspecified asthma, uncomplicated; R00.0 Tachycardia, unspecified; R41.0 Disorientation, unspecified
CPT/HCPCS: 36415; 70491; 80048; 80053; 82565; 83735; 84100; 84132; 84145; 84146; 84520; 85025; 85027; 85610; 85730; 86140; 87641; 94002; 94003; 94760; A9270-GY; C1751; J0696; J1200; J1644; J1885; J2250; J2405; J2704; J2920; J2930; J3010; J7512; Q9967

== ENCOUNTER 2018-10-30 17:51 | Emergency (ER) | payer OTHER ==
[2018-10-30 18:10] VITALS: BP 158/96
--- NOTE | 2018-10-30 18:13 | UC ---
Dental HPI - HPI Summary HPI Summary: 47 y/o male presents to the urgent care c/o RT upper jaw pain w/ a tooth cavities for the past week. Pt reports dental pain worsen last night. He called his dentist this morning and he was an appt next week. He has been taken Ibuprofen 600mg PO to alleviate symptoms, last dose taken today at 12N. Pt states this morning his RT side of cheek is swollen and pain is now 6/10. Pt denies fever or trismus, WILCOX, dizziness, chest pain,abdominal pain, N/V/D. - History of Current Complaint Chief Complaint: UCDentalProblem Stated Complaint: TOOTH ACHE Time Seen by Provider: 10/30/18 18:11 Hx Obtained From: Patient Onset/Duration: Gradual Onset, Lasting Weeks - 1 week, Still Present, Worse Since - last night Severity: Moderate Pain Intensity: 6 Pain Scale Used: 0-10 Numeric Aggravating Factor(s): Chewing Alleviating Factor(s): OTC Meds - Iburpofen PO last dose at 12N Related History: Swelling - RT side cheek - Allergies/Home Medications Allergies/Adverse Reactions: Allergies Allergy/AdvReac Type Severity Reaction Status Date / Time No Known Allergies Allergy Verified 10/30/18 18:05 PMH/Surg Hx/FS Hx/Imm Hx Previously Healthy: Yes Respiratory History: Asthma - Surgical History Surgical History: Yes Surgery Procedure, Year, and Place: HERNIA REPAIR - Family History Known Family History: Positive: Respiratory Disease - Asthma Negative: Hypertension, Diabetes - Social History Occupation: Employed Full-time Lives: With Family Alcohol Use: Weekly Alcohol Amount: 4x weeks Substance Use Type: None Smoking Status (MU): Former Smoker Type: Cigarettes Amount Used/How Often: "not every day" When Did the Patient Quit Smoking/Using Tobacco: 2 years ago - Immunization History Most Recent Influenza Vaccination: UNK Most Recent Pneumonia Vaccination: UNK Review of Systems All Other Systems Reviewed And Are Negative: Yes Constitutional: Positive: Negative Skin: Positive: Other - RT cheek swelling Eyes: Positive: Negative ENT: Positive: Dental Pain - Rt upper jaw dental pain Respiratory: Positive: Negative Cardiovascular: Positive: Negative Gastrointestinal: Positive: Negative Genitourinary: Positive: Negative Motor: Positive: Negative Neurovascular: Positive: Negative Musculoskeletal: Positive: Negative Neurological: Positive: Negative Psychological: Positive: Negative Is Patient Immunocompromised?: No Physical Exam - Summary Physical Exam Summary: Vital Signs Reviewed: Yes General: Well-Appearing, Well-Nourished male sitting in the examining table w/ o any respiratory or pain distress Eyes: Positive: Conjunctiva Clear - PERRLA, EOMI, ENT: Positive: Normal ENT inspection, Hearing grossly normal, Pharynx normal, TMs normal - B/L external ear canals clear,. Negative: Tonsillar swelling, Tonsillar exudate, Trismus Dental: Positive: Gross Decay/Caries on tooth #6 w/ gingival swelling and erythema, tender to percussion.Positive RT maxillary mild swelling w/ positive anterior Cervical Lymphadenopathy. Neck: Positive: Supple Respiratory: Positive: Chest non-tender, Lungs clear, Normal breath sounds, No respiratory distress Cardiovascular: Positive: RRR, No Murmur, Pulses Normal, Brisk Capillary Refill Abdomen Description: Positive: Nontender, No Organomegaly, Soft. Negative: CVA Tenderness (R), CVA Tenderness (L) Bowel Sounds: Positive: Present Musculoskeletal: Positive: Strength Intact, ROM Intact, No Edema Neurological Exam: Normal Psychological Exam: Normal Skin Exam: Normal Triage Information Reviewed: Yes Vital Signs: Initial Vital Signs Temp 98.8 F 10/30/18 17:58 Pulse 74 10/30/18 17:58 Resp 18 10/30/18 17:58 BP 158/96 10/30/18 17:58 Pulse Ox 99 10/30/18 17:58 Dental Complaint Course/Dx - Course Course Of Treatment: 47 y/o male presents to the urgent care c/o RT upper jaw pain w/ a tooth cavities for the past week. Pt reports dental pain worsen last night. He called his dentist this morning and he was an appt next week. He has been taken Ibuprofen 600mg PO to alleviate symptoms, last dose taken today at 12N. Pt states this morning his RT side of cheek is swollen and pain is now 6/10. Pt denies fever or trismus, WILCOX, dizziness, chest pain,abdominal pain, N/V/D. Hx obtained. Pt is hemodynamically stabel, A&OX3 with dental abscess around tooth #6 w/ gross decay and swelling over the RT maxillary w/ mild tenderness to palpation. examination. Pt Rx Clindamycin PO and Ibuprofen PO as directed below. Pt strongly advised to f/u with Dentist as soon as possible for further evaluation and treatment. Pt's BP is elevated today advised to decrease salt in diet, monitor BP and f/u with PCP for further management. D/C instructions explained. Pt understood and agreed with plan of care. - Differential Dx/Diagnosis Differential Diagnosis/Dx: Dental Abscess, Dental Caries, Fractured Tooth, Gingivitis, Peridontic Disease, Peritonsillar Abcess Provider Diagnosis: Dental abscess, Dental caries, Elevated BP without diagnosis of hypertension Discharge ED - Sign-Out/Discharge Documenting (check all that apply): Patient Departure - d/C home All imaging exams completed and their final reports reviewed: No Studies - Discharge Plan Condition: Stable Disposition: HOME Prescriptions: Clindamycin Cap(NF) [Clindamycin Cap 300 mg Cap(NF)] 300 mg PO Q6H #40 cap Ibuprofen TAB* [Motrin TAB* 800 MG] 800 mg PO Q6H PRN #30 tab PRN Reason: dental pain Patient Education Materials: Dental Abscess (ED) Referrals: [facility] [Outside] - 3 Days Additional Instructions: 1-Please take full course of antibiotics to avoid resistance. Take yogurts w/ probiotics or Culturelle to protect your GI system 2- continue taking Ibuprofen PO as instructed after meals to alleviate pain and swelling. 3- F/u with your Dentist or Dental List provided as soon as possible for further treatment. 4- If you develop fever, dizziness, severe swelling w/ dental pain despite taking antibiotics, please go immediately to the ER for further management. 5- Your BP is elevated today. please decrease salt in your diet, monitor BP and if it continues to be elevated please f/u with your PCP for further management. - Billing Disposition and Condition Condition: STABLE Disposition: Home
== END 2018-10-30 19:03 | disposition home or self-care (01) ==
LOC: UCEAST 17:51
DX: K04.7 Periapical abscess without sinus (principal); K02.9 Dental caries, unspecified; R03.0 Elevated blood-pressure reading, without diagnosis of hypertension; J45.909 Unspecified asthma, uncomplicated; Z87.891 Personal history of nicotine dependence
CPT/HCPCS: 99212; G0463

== ENCOUNTER 2018-11-01 10:04 | Emergency (ER) | payer OTHER ==
--- NOTE | 2018-11-01 10:41 | ED ---
Throat Pain/Nasal Congestion - HPI Summary HPI Summary: 47 year old M presenting to [facility] accompanied by complains of worsening right-sided facial swelling and right-sided facial since yesterday. Patient developed a toothache in his right upper front teeth 1.5 weeks ago. Patient states he was seen at [facility] on 10/30/18 where he was diagnosed with a dental infection in the right upper front teeth and discharged with prescription for clindamycin. Patient reports decreased pain to his teeth and gums since taking the clindamycin. Patient reports ability to chew. The patient rates the pain 5/10 in severity. Symptoms aggravated by nothing. Symptoms alleviated by nothing. Patient states he has a dental appointment on Saturday11/03/18. - History of Current Complaint Chief Complaint: EDDentalPain Time Seen by Provider: 11/01/18 10:33 Hx Obtained From: Patient Onset/Duration: Lasting Days, Still Present Severity: Mild - Allergies/Home Medications Allergies/Adverse Reactions: Allergies Allergy/AdvReac Type Severity Reaction Status Date / Time No Known Allergies Allergy Verified 10/30/18 18:05 PMH/Surg Hx/FS Hx/Imm Hx Endocrine/Hematology History: Denies: Hx Diabetes, Hx Thyroid Disease Cardiovascular History: Denies: Hx Hypertension Respiratory History: Reports: Hx Asthma - A CHILD Denies: Hx Chronic Obstructive Pulmonary Disease (COPD) GI History: Denies: Hx Ulcer Sensory History: Denies: Hx Contacts or Glasses, Hx Hearing Aid Opthamlomology History: Denies: Hx Contacts or Glasses - Surgical History Surgery Procedure, Year, and Place: HERNIA REPAIR Hx Anesthesia Reactions: No Infectious Disease History: No Infectious Disease History: Denies: Hx Clostridium Difficile, Hx Hepatitis, Hx Human Immunodeficiency Virus (HIV), Hx Shingles, Hx Tuberculosis, Hx Known/Suspected VRE, Hx Known/ Suspected VRSA, History Other Infectious Disease, Traveled Outside the [place] in Last 30 Days - Family History Known Family History: Positive: Respiratory Disease - Asthma Negative: Hypertension, Diabetes - Social History Alcohol Use: Occasionally Alcohol Amount: 4x weeks Hx Substance Use: No Substance Use Type: Reports: None Hx Tobacco Use: Yes Smoking Status (MU): Former Smoker Type: Cigarettes Amount Used/How Often: "not every day" Review of Systems Negative: Fever Positive: Other - worsening right-sided facial swelling and right-sided facial pain, pain to his teeth and gums, ability to chew All Other Systems Reviewed And Are Negative: Yes Physical Exam - Summary Physical Exam Summary: Appearance: The patient is well-nourished in no acute distress and in no acute pain. Skin: The skin is warm and dry, and skin color reflects adequate perfusion. HEENT: There is swelling and tenderness over the infraorbital area on the right. The sinus transilluminates. There is necrotic maxillary canine on the right. The pupils are equal and reactive. The conjunctivae are clear and without drainage. Nares are patent and without drainage. Mouth reveals moist mucous membranes, and the throat is without erythema and exudate. The external ears are intact. The ear canals are patent and without drainage. The tympanic membranes are intact. Neck: The neck is supple with full range of motion and non-tender. There are no carotid bruits. There is no neck vein distension. Respiratory: Chest is non-tender. Lungs are clear to auscultation and breath sounds are symmetrical and equal. Cardiovascular: Heart is regular rate and rhythm. There is no murmur or rub auscultated. There is no peripheral edema and pulses are symmetrical and equal. Abdomen: The abdomen is soft and non-tender. There are normal bowel sounds heard in all four quadrants and there is no organomegaly palpated. Musculoskeletal: There is no back tenderness noted. Extremities are non-tender with full range of motion. There is good capillary refill. There is no peripheral edema or calf tenderness elicited. Neurological: Patient is alert and oriented to person, place and time. The patient has symmetrical motor strength in all four extremities. Cranial nerves are grossly intact. Deep tendon reflexes are symmetrical and equal in all four extremities. Psychiatric: The patient has an appropriate affect and does not exhibit any anxiety or depression. Triage Information Reviewed: Yes Vital Signs On Initial Exam: Initial Vitals Temp Pulse Resp BP Pulse Ox 98.6 F 84 16 136/91 98 11/01/18 10:11/01/18 10:07 11/01/18 10:11/01/18 10:11/01/18 10:07 Vital Signs Reviewed: Yes Diagnostics - Vital Signs Vital Signs Temp Pulse Resp BP Pulse Ox 11/01/18 10:07 98.6 F 84 16 136/91 98 - Laboratory Lab Statement: Any lab studies that have been ordered have been reviewed, and results considered in the medical decision making process. - CT Maxillofacial CT Interpretation Completed By: Radiologist Summary of CT Findings: 1. FACIAL SOFT TISSUE SWELLING ON THE RIGHT SIDE SUGGESTIVE OF CELLULITIS, NO ABSCESS IS SEEN. 2. THERE IS PERIAPICAL LUCENCY ADJACENT TO THE RIGHT THIRD POSTERIOR MANDIBULAR MOLAR. RECOMMEND DENTAL CONSULTATION. ED physician has reviewed this report. Re-Evaluation - Re-Evaluation First Eval Re-Evaluation Time: 12:18 Comment: patient updated on CT report. discussed disposition plan. patient is agreeable to discharge EENT Course/Dx - Course Course Of Treatment: Mr. Carbajal was nontoxic in appearance with stable vital signs however had some swelling and tenderness in his upper face. This seems likely to be coming from his dental infection however his tooth pain had improved immensely after starting clindamycin and this has developed therefore I was concerned there could be an abscess. A CT scan revealed cellulitis only and I will switch and Pen-Vee K as this may be a clindamycin failure. - Diagnoses Provider Diagnoses: Cellulitis Discharge ED - Sign-Out/Discharge Documenting (check all that apply): Patient Departure - Discharge Patient Received Moderate/Deep Sedation with Procedure: No - Discharge Plan Condition: Stable Disposition: HOME Prescriptions: Penicillin VK TAB* [Penicillin VK 250 mg Tab*] 500 mg PO QID #40 tab Patient Education Materials: Cellulitis (ED) Referrals: [facility] [Outside] Additional Instructions: Follow up with your dentist as scheduled. Return to the Emergency Department for new or worsening symptoms. - Billing Disposition and Condition Condition: STABLE Disposition: Home - Attestation Statements Document Initiated by Sumi: Yes Documenting Scribe: Codi Malloy Provider For Whom Sumi is Documenting (Include Credential): John Paul Brock MD [employer] Attestation: ICodi, scribed for John Paul Brock MD on 11/01/18 at 1254. Scribe Documentation Reviewed: Yes Provider Attestation: The documentation as recorded by the Codi zeng accurately reflects the service I personally performed and the decisions made by me, John Paul Brock MD Status of [employer] Document: Viewed
[2018-11-01 12:37] VITALS: BP 128/88
== END 2018-11-01 12:35 | disposition home or self-care (01) ==
LOC: ED 10:04
DX: L03.211 Cellulitis of face (principal); R60.9 Edema, unspecified; Z87.891 Personal history of nicotine dependence
CPT/HCPCS: 70486; 99282